=== PATIENT | male | born 1990 | race Caucasian/White ===

== ENCOUNTER 2018-03-24 10:34 | Day surgery (SDC) | payer BC ==
[~2018-03-24 10:34] MED LIST: Acetaminophen/HYDROcodone 325-5 MG Tab PO PRN; Lactated Ringers 1,000 ML IV SCH; ceFAZolin 1 GM in Premix Bag 1 BAG IV SCH
[2018-03-24] MEDS ORDERED: Propofol 200 MG/20 ML SDV ONE (11:49)
[2018-03-24] MEDS ORDERED: Lidocaine 2% 5 ML SDV ONE (11:49)
[2018-03-24] MEDS ORDERED: Midazolam 1 MG/ML 2 ML SDV ONE (11:50)
[2018-03-24] MEDS ORDERED: fentaNYL 250 MCG/5 ML SDV ONE (11:50)
[2018-03-24] MEDS ORDERED: Bupivacaine 0.5% 10 ML SDV ONE (12:33)
--- NOTE | 2018-03-24 12:38 | PCM.PREANE ---
Preanesthetic Assessment - Anesthesia/Transfusion/Family Hx Anesthesia History: Prior Anesthesia Without Reaction Family History of Anesthesia Reaction: No Transfusion History: No Prior Transfusion(s) - Review of Systems General: No Symptoms Pulmonary: No Symptoms Gastrointestinal: No Symptoms Neurological: No Symptoms Other: Reports: None - Physical Assessment O2 Sat by Pulse Oximetry: 96 Respiratory Rate: 16 Vital Signs: Last Vital Signs Temp 1100 C H 03/24/18 11:00 Pulse 57 L 03/24/18 11:00 Resp 16 03/24/18 11:00 BP 116/70 03/24/18 11:00 Pulse Ox 96 03/24/18 11:00 Height: 1.8 m Weight: 77.111 kg ASA Class: 2 Mental Status: Alert & Oriented x3 Dentition: Reports: Normal Dentition ROM/Head Extension: Full Lungs: Clear to Auscultation Cardiovascular: Regular Rate - Allergies Allergies/Adverse Reactions: Allergies Allergy/AdvReac Type Severity Reaction Status Date / Time pineapple Allergy Mouth Sores Verified 03/19/18 11:15 - Blood Blood Available: No - Anesthesia Plan Pre-Op Medication Ordered: None - Acknowledgements Anesthesia Type Planned: General Anesthesia Pt an Appropriate Candidate for the Planned Anesthesia: Yes Alternatives and Risks of Anesthesia Discussed w Pt/Guardian: Yes Pt/Guardian Understands and Agrees with Anesthesia Plan: Yes PreAnesthesia Questionnaire HEENT History: Reports: Other (See Below) Other HEENT History: wears glasses, hx of fx nose Musculoskeletal History: Reports: Arthritis, Fracture Other Musculoskeletal History: hx of fx right ankle, right wrist, clavicle - Past Surgical History Head Surgeries/Procedures: Reports: None Musculoskeletal Surgical History: Reports: ORIF Other Musculoskeletal Surgeries/Procedures:: ORIF right ankle (has hardware), pinning of right wrist (has pin) - SUBSTANCE USE Smoking Status *Q: Never Smoker Recreational Drug Use History: No - HOME MEDS Home Medications: Home Meds Ibuprofen 800 mg PO TID PRN 03/19/18 [History] Naproxen Sodium [Aleve] 220 mg PO TID PRN 03/19/18 [History] Acetaminophen/HYDROcodone [[place] 325-5 MG] 1 - 2 tab PO Q4H PRN #80 tablet 03/24 [Rx] - CURRENT (IN HOUSE) MEDS Current Meds: Current Medications Hydrocodone Bitart/Acetaminophen ([place] 325-5 Mg) 1 - 2 tab PO Q4H PRN PRN Reason: Pain Cefazolin Sodium/Dextrose 1 gm (/ Premix) 50 mls @ 100 mls/hr IV ONCALL MYKE Lactated Ringer's (Ringers, Lactated) 1,000 mls @ 100 mls/hr IV ASDIRECTED MYKE Discontinued Medications Bupivacaine HCl (Sensorcaine-Mpf 0.5%) Confirm Administered Dose 20 ml .ROUTE .STK-MED ONE Stop: 03/24/18 12:34 Fentanyl (Sublimaze) Confirm Administered Dose 250 mcg .ROUTE .STK-MED ONE Stop: 03/24/18 11:51 Lidocaine (Xylocaine-Mpf 2%) Confirm Administered Dose 10 ml .ROUTE .STK-MED ONE Stop: 03/24/18 11:50 Midazolam HCl (Versed 1 Mg/Ml) Confirm Administered Dose 2 mg .ROUTE .STK-MED ONE Stop: 03/24/18 11:51 Propofol (Diprivan 20 Ml) Confirm Administered Dose 400 mg .ROUTE .STK-MED ONE Stop: 03/24/18 11:50
[2018-03-24] MEDS ORDERED: HYDROmorphone 2 MG/ML SDV ONE (13:40)
[2018-03-24] MEDS ORDERED: fentaNYL 100 MCG/2 ML SDV IVPUSH PRN (14:42)
--- NOTE | 2018-03-24 14:55 | PCM.OPNOTE ---
- General Post-Op/Procedure Note Date of Surgery/Procedure: 03/24/18 Operative Procedure(s): 1. HWR right tibia and fibula. 2. microfracture R talus Post-Op Diagnosis: 1. painful retained HW R tib/fib. 2. OCD R talus Anesthesia Technique: General LMA Primary Surgeon: Mansi Hammer Refrigeration Service Inspector: Keith Oates in mLs: 10 Condition: Good Free Text/Narrative:: tt=58 min #[id number]
--- NOTE | 2018-03-24 15:38 | PCM.POSTAN ---
POST ANESTHESIA ASSESSMENT - MENTAL STATUS Mental Status: Alert, Oriented - RESPIRATORY Respiratory Status: Respiratory Rate WNL, Airway Patent, O2 Saturation Stable - CARDIOVASCULAR CV Status: Pulse Rate WNL, Blood Pressure Stable - GASTROINTESTINAL GI Status: No Symptoms - PAIN Pain Score: 4 - POST OP HYDRATION Hydration Status: Adequate & Stable
--- NOTE | 2018-03-24 16:07 | CR ---
EXAMINATION: Left ankle HISTORY: Hardware removal COMPARISON: 03/11/2018 TECHNIQUE: Single view FINDINGS/IMPRESSION: Operative control films demonstrate removal of distal fibula and tibia hardware.
--- NOTE | 2018-03-24 20:50 | OR ---
SURGEON: Mansi Hammer MD DATE OF PROCEDURE: 03/24/2018 PREOPERATIVE DIAGNOSIS: Painful retained hardware, right tibia and fibula. POSTOPERATIVE DIAGNOSES: 1. Painful retained hardware, right tibia and fibula. 2. Osteochondral defect of the right talus. PROCEDURES: 1. Hardware removal, right tibia and fibula (deep implants). 2. Microfracture of the right talar dome. MOISTURE METER OPERATOR: Keith Yu MD, PGY2. ANESTHESIA: General. ESTIMATED BLOOD LOSS: 5 mL. TOURNIQUET TIME: 15 minutes. COMPLICATIONS: None. DVT PROPHYLAXIS: PAS boot to the nonoperative leg. IMPLANTS USED: None. BRIEF HISTORY: Jourdan is a 27-year-old male, who previously underwent open reduction and internal fixation of a right distal tibia and fibula fracture at an outside facility. He went on to heal the fracture well; however, has continued to have irritation of the hardware. X-rays obtained in clinic showed prominence of the distal tibial plate with what appeared to be impingement of the plate on the talus. At that time, I recommended hardware removal of both the tibia and fibula hardware. The risks and goals of procedure were discussed with the patient and were documented preoperatively. He agreed to proceed. DESCRIPTION OF PROCEDURE: The patient was properly identified and brought to the operating room. He was transferred from the OR cart and placed on the operating table in supine position. General anesthesia was administered. After adequate anesthesia was obtained, a well-padded tourniquet was applied to the right lower extremity. The right lower extremity was then prepped in standard fashion using ChloraPrep solution. It was then sterilely draped. A time-out was performed to ensure correct site and procedure. Preoperative antibiotics were given. The surgical site had been marked preoperatively. An Esmarch was used to exsanguinate the right lower extremity and the tourniquet was inflated to 250 mmHg. An incision was made over the site of the previous incision over the lateral aspect of the ankle. Subcutaneous tissues were incised. The superficial peroneal nerve was not encountered. The plate was visualized. Soft tissue was removed from the plate. The screws were removed without difficulty. The plate was then removed as well. The fracture appeared to be well healed. The wound was copiously irrigated with saline solution. It was packed with a damp sponge. We then turned our attention to the tibia. An incision was made over the anterior aspect of the ankle, over the site of the previous incision. The subcutaneous tissues were dissected down. I entered an interval just medial to the EDC tendons. The plate was palpated. The tissue overlying the plate was incised. The plate was exposed in a subperiosteal fashion. The plate screws were then removed without difficulty. There was an additional screw that entered from the lateral aspect of the distal tibia. This was slightly overgrown with bone and an osteotome was used to remove the excess bone. The screw head was visualized and the screw was removed without difficulty. We then made a small incision over the medial malleolus over the site of the previous incision. Subcutaneous tissues were dissected to the level of the hardware. The screw head was visualized and the medial malleolus screw was removed without difficulty. I then opened the anterior capsule of the tibiotalar joint. The talus was visualized. He had complete loss of cartilage along the weightbearing portion of the talar dome where the plate had been impinging. There was some excess bony formation as well, which was rongeured from the distal tibia. The osteochondral defect measured approximately 10 mm in the anterior-posterior plane by 17 mm in the medial-lateral plane. I elected to proceed with microfracture of the area to potentially stimulate blood flow to this area. A 0.625 K-wire was used to place small holes within the subchondral bone. The tourniquet was then released. He did have good blood flow from the microfracture site. The wound was then copiously irrigated with saline solution. The ankle capsule was closed using 0 Vicryl. Subcutaneous tissues were closed with 2-0 Monocryl, and the skin was closed with faiza. The lateral incision was closed in a similar fashion. A 0.5% Marcaine was injected along the incision sites. Xeroform gauze was placed over the wound and a bulky dressing was applied. He was awakened from his anesthetic and transferred back to the operating room cart. He was brought to recovery room in stable condition. All needle and sponge counts were correct. OBDULIO / PALAK /[id number]
== END 2018-03-24 17:08 | disposition home or self-care (01) ==
LOC: MW.SDS 10:34
PROVIDERS: ATTEND Orthopaedic Surgery
DX: T84.84XA Pain due to internal orthopedic prosthetic devices, implants and grafts, initial encounter (principal); M93.271 Osteochondritis dissecans, right ankle and joints of right foot; Z91.018 Allergy to other foods
CPT/HCPCS: 20680; 28100; 76000; J1170; J2250; J3010; J7120; J2704

== ENCOUNTER 2021-11-08 15:37 | Emergency (ER) | payer BC ==
--- NOTE | 2021-11-08 17:25 | EDM.PDOC ---
ED HPI GENERAL MEDICAL PROBLEM - General Chief Complaint: Fever Stated Complaint: FEVER & CHEST CONGESTION AFTER HAVING SURGERY Time Seen by Provider: 11/08/21 17:17 Source of Information: Reports: Patient History Limitations: Reports: No Limitations - History of Present Illness INITIAL COMMENTS - FREE TEXT/NARRATIVE: HISTORY AND PHYSICAL: History of present illness: The patient is a 31-year-old male with a history of ankle replacement on 11/06/2021 resents to the emergency department after complaining of a temperature of 102 and new onset of chest congestion that started last night. The patient is concerned as to his right ankle that is casted after ankle replacement surgery. The patient states that his pain has been progressively getting better and better. The patient feels as if his ankle is healing appropriately. The patient did not have a COVID-19 swab prior to surgery. Patient states that he has been experiencing the fever and chest compression and is concerned. Other than those to symptoms the patient has no other symptoms and has been eating and drinking without difficulty. Patient denies any chills, headache, change in vision, syncope or near syncope. Denies any chest pain, back pain, shortness of breath or cough. Denies any abdominal pain, nausea, vomiting, diarrhea, constipation or dysuria. Has not noted any blood in urine or stool. Patient has been eating and drinking appropriately. Review of systems: As per history of present illness and below otherwise all systems reviewed and negative. Past medical history: As per history of present illness and as reviewed below otherwise noncontributory. Surgical history: As per history of present illness and as reviewed below otherwise noncontributory. Social history: See social history for further information Family history: As per history of present illness and as reviewed below otherwise noncontributory. Physical exam: General: Well developed and well nourished. Alert and orientated x 3. Nontoxic in appearance and in no acute distress. Vital signs are stable and have been reviewed by me. Nursing notes were reviewed. HEENT: Atraumatic, normocephalic, pupils equal and reactive bilaterally, negative for conjunctival pallor or scleral icterus, mucous membranes moist, TMs normal bilaterally, throat clear, neck supple, nontender, trachea midline. No drooling or trismus noted. No meningeal signs. No hot potato voice noted. Lungs: Clear to auscultation bilaterally. No wheezes, rales, or rhonchi. Chest nontender. Normal work of breathing, no accessory muscles used. Heart: S1S2, regular rate and rhythm without overt murmur, gallops, or rubs. No JVD. No peripheral edema Abdomen: Soft, nondistended, nontender. Normoactive bowel sounds. Negative for masses or costovertebral tenderness. Skin: Intact, warm, dry. No lesions or rashes noted. Hematologic: No petechiae or purpra. Mucosa appropriate color and normal nail bed color and refill. Extremities: Right lower extremity casted. Good sensation and neurovascularly intact. moves all extremities per self without difficulty or deficits, negative for cords or calf pain. Neurovascular unremarkable. Neuro: Awake, alert, oriented. Cranial nerves II through XII unremarkable. Cerebellum unremarkable. Motor and sensory unremarkable throughout. Exam nonfocal. Psychiatric: Mood and affect are appropriate. Normal thought process. Answering questions appropriately. Notes: *This patient was seen and evaluated during the 2019 SARS-CoV-2 novel coronavirus pandemic period. Community viral transmission is ongoing at time of this encounter and the emergency department is operating under pandemic response procedures. The patient is a 31-year-old male with a history of ankle replacement on 11/06/2021 resents to the emergency department after complaining of a temperature of 102 and new onset of chest congestion that started last night. The patient's casted extremity is warm and neurovascularly intact. We will obtain blood work, chest x-ray, and a Covid/influenza swab. The patient CBC is unremarkable as is the chemistry. The patient's chest x-ray is Impression: Hyperinflation and chronic interstitial change without evidence of dense consolidation. Patient's influenza swab is negative. The patient's COVID-19 swab is positive. I educated the patient on COVID-19 and the signs to look for. I have completed the monoclonal antibody paperwork and have given the patient the fact sheet. I obtained his consent for the infusion. I instructed the patient to call his orthopedic surgeon to ask his advice on Thursday to see if he would recommend the monoclonal antibodies. The patient voiced understanding. I have talked with the patient about today's findings, in addition to providing specific details for plan of care. Reassessment at the time of disposition demonstrates that the patient is in no acute distress. The patient is stable for discharge, counseling was provided and we discussed in great detail signs and symptoms that would prompt them to return to the Emergency Department. Medication, follow up and supportive care measures were reviewed and discussed. Voices understanding and is agreeable to plan of care. Denies any further questions or concerns at this time. Diagnostics: CBC, CMP, x-ray, Covid/influenza swab Prescription: Monoclonal antibodies Impression: COVID-19 Plan: 1. Concerns regarding your fever and your recent ankle surgery was evaluated with blood work which was essentially normal as was your chest x-ray. Your COVID-19 screening was positive. You need to call your surgeon on Thursday to inform them that you are COVID-19 is positive. We talked about the monoclonal antibodies and you felt like you were doing well on your own. I am going to set you up for a phone call for the monoclonal antibodies. You need to call your surgeon on Thursday to see if he recommends this or not. If it is recommended just do not make the appointment with the clinic because you. 1. Your COVID-19 screening is positive. That means you do have the coronavirus and you are considered contagious. Your vital signs and oxygen saturation are well enough that you were able to monitor your symptoms at home. Continue to monitor for trouble breathing, new confusion or inability to arouse, bluish lips or face or any of the other symptoms we discussed -if this occurs please return to the emergency room 2. Please self quarantine until cleared by [facility]. Inform any persons that you have been in contact with since you started becoming symptomatic that you have tested positive; they should be made aware and take the appropriate steps as needed. 3. You can take NyQuil during the evening to help get a restful night sleep. May alternate Tylenol and ibuprofen as needed for pain and fever management. 4. The [facility] department will be calling you and following up with you. The [place] COVID 19 Hotline phone number , They are open Thursday - Thursday 7am - 7pm. Follow up with your primary care provider for re-evaluation and re-testing after the 10 day quarantine and discuss when you should be seen. Definitive disposition and diagnosis as appropriate pending reevaluation and review of above. Right ankle Pain Score (Numeric/FACES): 5 - Related Data Allergies Allergy/AdvReac Type Severity Reaction Status Date / Time pineapple Allergy Mouth Sores Verified 12/31/21 16:27 Home Meds: Home Meds Acetaminophen/HYDROcodone [[place] 325-5 MG] 1 - 2 tab PO Q4H PRN #80 tablet 03/24/18 [Rx] Aspirin 1 tab PO DAILY 11/08/21 [History] traMADol [Ultram] 1 tab 11/08/21 [History] Past Medical History HEENT History: Reports: Other (See Below) Other HEENT History: wears glasses, hx of fx nose Musculoskeletal History: Reports: Arthritis, Fracture Other Musculoskeletal History: hx of fx right ankle, right wrist, clavicle - Infectious Disease History Infectious Disease History: Reports: None - Past Surgical History Head Surgeries/Procedures: Reports: None Musculoskeletal Surgical History: Reports: ORIF, Other (See Below) Other Musculoskeletal Surgeries/Procedures:: ORIF right ankle (has hardware), pinning of right wrist (has pin); complete ankle replacement 10/2021 Social & Family History - Family History Family Medical History: No Pertinent Family History - Caffeine Use Caffeine Use: Reports: Energy Drinks - Recreational Drug Use Recreational Drug Use: No ED ROS GENERAL - Review of Systems Review Of Systems: Comprehensive ROS is negative, except as noted in HPI. ED EXAM, GENERAL - Physical Exam Exam: See Below (See dictation) Course - Vital Signs Last Recorded V/S: Last Vital Signs Temp 97.7 F 11/08/21 16:30 Pulse 78 11/08/21 19:33 Resp 16 11/08/21 19:33 BP 138/71 11/08/21 19:33 Pulse Ox 96 11/08/21 19:33 - Orders/Labs/Meds Labs: Laboratory Tests 11/08/21 11/08/21 11/08/21 Range/Units 17:44 17:44 18:15 WBC 5.27 (4.0-11.0) K/uL RBC 4.59 (4.50-5.90) M/uL Hgb 14.2 (13.0-17.0) g/dL Hct 41.7 (38.0-50.0) % MCV 90.8 (80.0-98.0) fL MCH 30.9 (27.0-32.0) pg MCHC 34.1 (31.0-37.0) g/dL RDW Std Deviation 42.8 (28.0-62.0) fl RDW Coeff of Kate 13 (11.0-15.0) % Plt Count 211 (150-400) K/uL MPV 9.60 (7.40-12.00) fL Neut % (Auto) 65.6 (48.0-80.0) % Lymph % (Auto) 17.1 (16.0-40.0) % Travis % (Auto) 16.3 H (0.0-15.0) % Eos % (Auto) 0.8 (0.0-7.0) % Baso % (Auto) 0.2 (0.0-1.5) % Neut # (Auto) 3.5 (1.4-5.7) K/uL Lymph # (Auto) 0.9 (0.6-2.4) K/uL Travis # (Auto) 0.9 H (0.0-0.8) K/uL Eos # (Auto) 0.0 (0.0-0.7) K/uL Baso # (Auto) 0.0 (0.0-0.1) K/uL Nucleated RBC % 0.0 /100WBC Nucleated RBCs # 0 K/uL Sodium 136 (136-148) mmol/L Potassium 4.1 (3.5-5.1) mmol/L Chloride 99 (98-107) mmol/L Carbon Dioxide 27.7 (21.0-32.0) mmol/L BUN 16 (7.0-18.0) mg/dL Creatinine 1.1 (0.8-1.3) mg/dL Est Cr Clr Drug Dosing 103.00 mL/min Estimated GFR (MDRD) > 60.0 ml/min Glucose 97 (74-106) mg/dL Calcium 8.4 L (8.5-10.1) mg/dL Total Bilirubin 0.4 (0.2-1.0) mg/dL AST 25 (15-37) IU/L ALT 35 (14-63) IU/L Alkaline Phosphatase 76 (46-116) U/L Total Protein 7.1 (6.4-8.2) g/dL Albumin 3.3 L (3.4-5.0) g/dL Globulin 3.8 (2.6-4.0) g/dL Albumin/Globulin Ratio 0.9 (0.9-1.6) Influenza Type A RNA NEGATIVE (NEGATIVE) Influenza Type B RNA NEGATIVE (NEGATIVE) SARS-CoV-2 RNA (SO) POSITIVE H (NEGATIVE) Departure - Departure Time of Disposition: 19:20 Disposition: Home, Self-Care 01 Condition: Good Clinical Impression: COVID-19 - Discharge Information *PRESCRIPTION DRUG MONITORING PROGRAM REVIEWED*: Not Applicable *COPY OF PRESCRIPTION DRUG MONITORING REPORT IN PATIENT MILLY: Not Applicable Instructions: COVID-19: Quarantine vs. Isolation - [facility] (10/25/2020), COVID-19: What to Do If You Are Sick- [facility] (01/23/2021) Referrals: Jose Groves MD [Primary Care Provider] - Forms: ED Department Discharge Additional Instructions: The following information is given to patients seen in the emergency department who are being discharged to home. This information is to outline your options for follow-up care. We provide all patients seen in our emergency department with a follow-up referral. The need for follow-up, as well as the timing and circumstances, are variable depending upon the specifics of your emergency department visit. If you don't have a primary care physician on staff, we will provide you with a referral. We always advise you to contact your personal physician following an emergency department visit to inform them of the circumstance of the visit and for follow-up with them and/or the need for any referrals to a consulting specialist. The emergency department will also refer you to a specialist when appropriate. This referral assures that you have the opportunity for follow-up care with a specialist. All of these measure are taken in an effort to provide you with optimal care, which includes your follow-up. Under all circumstances we always encourage you to contact your private physician who remains a resource for coordinating your care. When calling for follow-up care, please make the office aware that this follow-up is from your recent emergency room visit. If for any reason you are refused follow-up, please contact the [facility] Emergency Department at and asked to speak to the emergency department charge nurse. [facility] [address] [place] [id number] [address] [place] [address] Plan: 1. Concerns regarding your fever and your recent ankle surgery was evaluated with blood work which was essentially normal as was your chest x-ray. Your COVID-19 screening was positive. You need to call your surgeon on Thursday to inform them that you are COVID-19 is positive. We talked about the monoclonal antibodies and you felt like you were doing well on your own. I am going to set you up for a phone call for the monoclonal antibodies. You need to call your surgeon on Thursday to see if he recommends this or not. If it is recommended just do not make the appointment with the clinic because you. 1. Your COVID-19 screening is positive. That means you do have the coronavirus and you are considered contagious. Your vital signs and oxygen saturation are well enough that you were able to monitor your symptoms at home. Continue to monitor for trouble breathing, new confusion or inability to arouse, bluish lips or face or any of the other symptoms we discussed -if this occurs please return to the emergency room 2. Please self quarantine until cleared by [facility]. Inform any persons that you have been in contact with since you started becoming symptomatic that you have tested positive; they should be made aware and take the appropriate steps as needed. 3. You can take NyQuil during the evening to help get a restful night sleep. May alternate Tylenol and ibuprofen as needed for pain and fever management. 4. The [facility] department will be calling you and following up with you. The [place] COVID 19 Hotline phone number , They are open Thursday - Thursday 7am - 7pm. Follow up with your primary care provider for re-evaluation and re-testing after the 10 day quarantine and discuss when you should be seen. Sepsis Event Note (ED) - Evaluation Sepsis Screening Result: No Definite Risk
[2021-11-08 18:11] LABS: BLOOD UREA NITROGEN,BUN 16 mg/dL (7.0-18.0); CARBON DIOXIDE,CO2 27.7 mmol/L (21.0-32.0); CHLORIDE,CL 99 mmol/L (98-107); GLUCOSE RANDOM 97 mg/dL (74-106); POTASSIUM,K 4.1 mmol/L (3.5-5.1); SODIUM,NA 136 mmol/L (136-148)
--- NOTE | 2021-11-08 18:18 | CR ---
Indication: Fever and cough Comparison: None available. Technique: Single AP view chest Findings: There is hyperinflation and chronic interstitial change. There is basilar atelectasis versus scar. There is no dense consolidation, effusion or pneumothorax. The cardiac silhouette is mildly prominent. The bony thorax is grossly intact. Impression: Hyperinflation and chronic interstitial change without evidence of dense consolidation. Dictated by Boom Renee MD @ 11/08/2021 6:17:08 PM (Electronically Signed)
[2021-11-08 18:59] LABS: CORONAVIRUS COVID-19 NAA POSITIVE (NEGATIVE); INFLUENZA A NAA NEGATIVE (NEGATIVE); INFLUENZA B NAA NEGATIVE (NEGATIVE)
== END 2021-11-08 19:32 | disposition home or self-care (01) ==
LOC: MW.ED 15:37
DX: U07.1 COVID-19 (principal); Z79.82 Long term (current) use of aspirin; Z91.018 Allergy to other foods
CPT/HCPCS: 0240U; 36415; 71045; 80053; 85025; 99283

== ENCOUNTER 2022-03-31 16:46 | Day surgery (SDC) | payer BC ==
[2022-03-31] MEDS ORDERED: Lactated Ringers 1,000 ML IV SCH ×2 (17:15→20:00)
[2022-03-31] MEDS ORDERED: Piperacillin/Tazobactam 3.375 GM in Sodium Chloride 0.9% 50 ML IV ONE (17:30)
[2022-03-31] MEDS ORDERED: fentaNYL 100 MCG/2 ML SDV ONE (17:40)
[2022-03-31] MEDS ORDERED: Propofol 200 MG/20 ML SDV ONE (17:40)
[2022-03-31] MEDS ORDERED: Dexmedetomidine 200 MCG/2 ML SDV ONE (17:40)
[2022-03-31] MEDS ORDERED: Midazolam 1 MG/ML 2 ML SDV ONE (17:41)
[2022-03-31] MEDS ORDERED: Rocuronium 100 MG/10 ML MDV ONE (17:44)
[2022-03-31] MEDS ORDERED: Succinylcholine 200 MG/10 ML MDV ONE (17:44)
[2022-03-31] MEDS ORDERED: Esmolol 100 MG/10 ML SDV ONE (17:49)
[2022-03-31] MEDS ORDERED: Bupivacaine 0.25%/EPINEPHrine 1:200,000 10 ML SDV ONE (17:57)
[2022-03-31] MEDS ORDERED: Octyl 2-Cyanoacrylate 1 Tube ONE (17:57)
[2022-03-31] MEDS ORDERED: Dexamethasone 4 MG/ML 5 ML MDV ONE (19:01)
[2022-03-31] MEDS ORDERED: Ketorolac 30 MG/ML SDV ONE (19:16)
[2022-03-31] MEDS ORDERED: Sugammadex Sodium 200 MG/2 ML VIAL ONE (19:16)
[2022-03-31] MEDS ORDERED: Ondansetron 4 MG/2 ML SDV ONE (19:16)
[2022-03-31] MEDS ORDERED: Acetaminophen/oxyCODONE 325-5 MG Tab PO PRN (19:51)
[2022-03-31] MEDS ORDERED: Morphine 4 MG/ML VIAL IVPUSH PRN ×2 (19:52→20:01)
[2022-03-31] MEDS ORDERED: Ondansetron 4 MG/2 ML SDV IVPUSH PRN ×2 (19:53→20:01)
[2022-03-31] MEDS ORDERED: Piperacillin/Tazobactam 3.375 GM in Sodium Chloride 0.9% 50 ML IV SCH (20:00)
[2022-03-31] MEDS ORDERED: fentaNYL 100 MCG/2 ML SDV IVPUSH PRN (20:01)
[2022-03-31] MEDS ORDERED: Naloxone 0.4 MG/ML SDV IVPUSH PRN (20:01)
[2022-03-31] MEDS ORDERED: Metoclopramide 10 MG/2 ML SDV IVPUSH PRN (20:01)
[2022-03-31] MEDS ORDERED: HYDROmorphone 1 MG/ML Syringe IVPUSH PRN (20:01)
[2022-03-31] MEDS ORDERED: Albuterol 0.083% 2.5 MG/3 ML Neb Soln NEB PRN (20:01)
[2022-04-01] MEDS: Piperacillin/Tazobactam 3.375 GM in Sodium Chloride 0.9% 50 ML IV SCH ×2 (02:18→08:03)
== END 2022-04-01 09:10 | disposition home or self-care (01) ==
LOC: MW.MS 16:46 → MW.SDS 16:46
PROVIDERS: ATTEND Surgery
DX: K35.30 Acute appendicitis with localized peritonitis, without perforation or gangrene (principal); Z01.812 Encounter for preprocedural laboratory examination; Z20.822 Contact with and (suspected) exposure to COVID-19
CPT/HCPCS: 44970; 87635; A9270; J0131; J0330; J1100; J1885; J2250; J2543; J2704; J3490; J7030; J7120; 00840; J2405; J3010; U0002